=== PATIENT | female | born 1960 | race Caucasian/White ===

== ENCOUNTER → 2019-04-28 | Outpatient (CLI) | payer OTHER ==
[~2019-04-28] MED LIST: LEVAQUIN500 MG PO; ULTRAM50 MG PO
--- NOTE | 2019-04-28 16:50 | Diagnostic Imaging Report ---
EXAM: US ABDOMEN COMPLETE DATE: 04/28/2019 3:55 PM INDICATION: Nausea COMPARISON: Abdomen and pelvis CT of 01/10/2009 TECHNIQUE: Transverse and longitudinal fregoso scale and color doppler sonographic images of the upper abdomen were obtained. FINDINGS: There is no evidence of fluid or masses seen in the area of clinical concern in the right lower quadrant. LIVER 13.3 cm in the right midclavicular line. Normal echogenicity of the liver with normal contour, no masses. SPLEEN 10.0 cm in maximum diameter. Normal echogenicity, no masses. GALLBLADDER No gallbladder wall thickening, distension, stone, or pericholecystic fluid. NEgative reported sonographic Price's sign. Gallbladder wall measures 4 mm BILE DUCTS No intra nor extra-hepatic biliary dilation. Common bile duct measures 2 mm PANCREAS: Visualized portions are normal. RIGHT KIDNEY: 10.7 cm Echogenicity: Normal Collecting System: No hydronephrosis Stones: 3 mm mid pole echogenic focus may correspond with the similarly sized renal calculus seen on CT from 01/10/2009. Cyst/Mass: None LEFT KIDNEY: 11.3 cm Echogenicity: Normal Collecting System: No hydronephrosis Stones: None Cyst/Mass: None VESSELS: Aorta: Visualized portions are within normal size limits Inferior Vena Cava: Visualized portions are normal Main Portal Vein: 1.1 cm, normal size with hepatopetal flow. FREE FLUID: None IMPRESSION: No cholelithiasis or sonographic evidence of cholecystitis. 3 mm right midpole nonobstructive calculus. No hydronephrosis. Signed by: Neil Sierra MD on 04/28/2019 4:46 PM
== END ==
LOC: US 15:49
PROVIDERS: ATTEND Internal Medicine
DX: R11.0 Nausea (principal)
CPT/HCPCS: 76700

== ENCOUNTER → 2020-02-09 | Day surgery (SDC) | payer OTHER ==
[2020-02-05 14:22] LABS: BASOPHILS % 0.5 % (0.0-1.0); EOSINOPHILS # (AUTO) 0.1 (0.0-0.4); EOSINOPHILS % 1.8 % (0.0-6.0); HEMOGLOBIN 14.6 g/dL (12.0-16.0); LYMPHOCYTES # (AUTO) 2.8 (1.0-3.2); LYMPHOCYTES % 34.9 % (18.0-39.1); MEAN CORPUSCULAR HEMOGLOBIN 30.6 pg (28-32); MEAN CORPUSCULAR HGB CONC 32.4 g/dL (31-35); MEAN CORPUSCULAR VOLUME 94.3 fL (81-99); MONOCYTES # (AUTO) 0.6 (0.2-0.8); MONOCYTES % 7.7 % (4.4-11.3); NEUTROPHILS # (AUTO) 4.4 (2.1-6.9); PLATELET COUNT 186 x10e3/uL (140-360); RED BLOOD COUNT 4.77 x10e6/uL (3.6-5.1); RED CELL DISTRIBUTION WIDTH 12.6 % (11.7-14.4)
[2020-02-05 14:44] LABS: ALANINE AMINOTRANSFERASE 17 IU/L (0-55); ALBUMIN/GLOBULIN RATIO 1.3 (0.8-2.0); ALKALINE PHOSPHATASE 93 IU/L (40-150); ANION GAP 11.4 mmol/L (8-16); BLOOD UREA NITROGEN 15 mg/dL (7-26); BUN/CREATININE RATIO 17 (6-25); CALCIUM 9.3 mg/dL (8.4-10.2); CARBON DIOXIDE 27 mmol/L (22-29); CHLORIDE 108 mmol/L (98-107); CREATININE, SERUM 0.87 mg/dL (0.57-1.11); EST GLOMERULAR FILTRATION RATE > 60 ML/MIN (60-); GLUCOSE 117 mg/dL (74-118); POTASSIUM 4.4 mmol/L (3.5-5.1); SODIUM 142 mmol/L (136-145)
[~2020-02-09] MED LIST changes: +BIOTIN1 MG PO; +DEXAMETHASONE SOD PHOS INJ 4 MG/ML VIAL ONE; +IOPAMIDOL 300MG/ML 50ML INFUS..BTL IV ONE; +LEVOFLOXACIN 500MG/D5W 100ML 100 ML IV ONE; +LIDOCAINE HCL 2% JELLY 5 ML TUBE ONE; +LIDOCAINE HCL 2% LOCAL INJ 5 ML SDV VIAL INJ ONE; +MULTIPLE VITAM1 EAC1 PO; +ONDANSETRON HCL INJ 2MG/ML 2ML 2 MG/ML VIAL ONE; +PROPOFOL IV EMULSION 10 MG/ML 20 ML VIAL ONE; +SEVOFLURANE INHAL SOLN 250 ML PEN BTL ONE; +TRAMADOL HCL 50 MG TAB ONE; +VITAMIN C1000 MG PO
[2020-02-09 14:25] VITALS: BP 166/75
--- NOTE | 2020-02-09 16:17 | Operative Report ---
DATE OF PROCEDURE: 02/09/2020 SURGEON: Camilo Whitley MD PREOPERATIVE DIAGNOSIS: Left ureteral calculi. POSTOPERATIVE DIAGNOSIS: Left ureteral calculi. OPERATION PERFORMED: Cystoscopy, retrograde pyelogram, rigid ureteroscopy with dusting laser lithotripsy. ANESTHESIOLOGIST: Staff. ANESTHESIA: General. FINDINGS: The patient has a grade 1-2 cystocele. Urethra is normal. Bladder neck normal. Bladder is normal. No evidence of petechiae, glomerulation, or ulcerations. Right ureteral orifice is normal. Left ureteral orifice is extremely swollen. The area of the mucosa over the intramural portion of the ureter also has some petechiae and submucosal bleeding. Retrograde pyelogram does show stone to be in the UVJ and lithotripsy was performed. PROCEDURE IN DETAIL: With the patient under satisfactory general anesthesia, the patient was placed in the supine position on the operating table. Legs were placed on stirrups. Genitalia was then prepped with Betadine soap and solution and draped in usual manner. Cystoscopy was performed with a 21 degree angle lens. The #8 cone-tip ureteral catheter was used to do a retrograde pyelogram by injecting contrast media on the right side first and on the left side second. Approximately 5 mL were injected on the left side, most of it did come out around the catheter. On the right side no filling defects were seen except in the lower pole collecting system where there appeared to be a couple little 2-[address] scan does show that she had the stones there. At this time, I attempted to pass an extra stiff guidewire up the left ureter that failed. I put an open-ended catheter and tried to pass the guidewire over the open-ended catheter and that failed as well. Therefore, I removed the cystoscope and replaced it with the semi-flexible rigid short ureteral scope. I was able then to go up the ureteral orifice and immediately see the stone impacted at the ureterovesical junction. I introduced 300 micron fiber and using the dusting energy, I proceeded to slowly dust the stone. I took a while because the stone had been impacted and finally I got it off the ureteral mucosa. After that, then I went up and down the ureter for about 3-4 cm, breaking up all those fragments until it was completely dusted. I did not try to just break the stone to collect the specimen because the patient did not want to have a double-J. I would have used that much energy then probably would have had to left double-J. At the end of the procedure I did not see any mucosal edema. There was no bleeding as well. Therefore, I removed the instrument leaving no double-J and I got an x-ray did not show any stones. At this point, the patient was taken to the recovery room. DISCHARGE INSTRUCTIONS: She was given tramadol for pain and Cipro. She will be seen in the office again in approximately two weeks to check urine. I discussed with the patient's father over the phone what was done and when I expect to see her in the office. MD SHARON Snyder/ANTONELLAL /[id number]
== END | disposition home or self-care (01) ==
LOC: OR 10:32
PROVIDERS: ATTEND Urology
DX: N13.2 Hydronephrosis with renal and ureteral calculous obstruction (principal); N81.10 Cystocele, unspecified; N39.0 Urinary tract infection, site not specified; I45.10 Unspecified right bundle-branch block; F41.9 Anxiety disorder, unspecified; Z88.1 Allergy status to other antibiotic agents; Z88.0 Allergy status to penicillin; Z01.810 Encounter for preprocedural cardiovascular examination; Z01.812 Encounter for preprocedural laboratory examination; Z11.59 Encounter for screening for other viral diseases
CPT/HCPCS: 36415; 52353; 74420; 80053; 85025; 87086; 93005; C1758; J1100; J1956; J2001 ×2; J2405; J2704; Q9967; U0002

== ENCOUNTER → 2024-06-01 | Outpatient (REF) | payer OTHER ==
[~2024-06-01] MED LIST changes: -DEXAMETHASONE SOD PHOS INJ 4 MG/ML VIAL ONE; -IOPAMIDOL 300MG/ML 50ML INFUS..BTL IV ONE; -LEVOFLOXACIN 500MG/D5W 100ML 100 ML IV ONE; -LIDOCAINE HCL 2% JELLY 5 ML TUBE ONE; -LIDOCAINE HCL 2% LOCAL INJ 5 ML SDV VIAL INJ ONE; +LINZESS290 MCG PO; -ONDANSETRON HCL INJ 2MG/ML 2ML 2 MG/ML VIAL ONE; -PROPOFOL IV EMULSION 10 MG/ML 20 ML VIAL ONE; -SEVOFLURANE INHAL SOLN 250 ML PEN BTL ONE; -TRAMADOL HCL 50 MG TAB ONE
== END ==
LOC: US 07:47
PROVIDERS: ATTEND Surgery
DX: R10.11 Right upper quadrant pain (principal)
CPT/HCPCS: 76705